=== PATIENT | female | born 1950 | race Caucasian/White ===

== ENCOUNTER 2020-04-05 10:38 | Inpatient (IN) | payer MEDICARE, OTHER ==
[2020-04-05] MEDS ORDERED: Sodium Chloride 0.9% 10 ML Syringe FLUSH PRN ×2 (11:31→16:09)
[2020-04-05] MEDS ORDERED: Ketorolac 30 MG/ML SDV IVPUSH ONE (11:32)
--- NOTE | 2020-04-05 11:38 | EDM.PDOC ---
ED HPI GENERAL MEDICAL PROBLEM - General Chief Complaint: General Stated Complaint: WEAKNESS, LIGHTHEADEDNESS, LEFT SIDE SIATIC PAIN Time Seen by Provider: 04/05/20 11:15 Source of Information: Reports: Patient, Family, RN. Denies: Old Records History Limitations: Reports: Other (no old records) - History of Present Illness INITIAL COMMENTS - FREE TEXT/NARRATIVE: 69 yo female from [facility] presents with R hip area pain that radiates down her leg. There was no injury. She reports having a high fever a couple weeks ago that resolved and then came back with no interventions. The fever has now stayed away, but she has some dizziness/light-headedness and this R hip pain. She has been taking ibuprofen or Aleve twice daily for the past 5 days for her hip pain with partial relief. No melena or dysuria. She has a rare, dry cough without SOB. Here with her . They hope to leave for [place] in about 2 weeks. Onset: Gradual Duration: Week(s):, Waxing/Waning Location: Reports: Lower Extremity, Right (hip area pain is her main concern today.) Quality: Reports: Ache Severity: Moderate (at rest, worse with movement.) Improves with: Reports: Rest Worsens with: Reports: Movement Context: Reports: Other (See HPI) Associated Symptoms: Reports: Cough (rare, dry), Fever/Chills (now gone for over a week. ), Malaise, Other (mild dizziness). 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 (ibuprofen 400 mg at about 0800h today) Right Hip Pain Score (Numeric/FACES): 10 - Related Data Allergies Allergy/AdvReac Type Severity Reaction Status Date / Time Penicillins Allergy Cannot Verified 04/05/20 11:07 Remember Sulfa (Sulfonamide Allergy Cannot Verified 04/05/20 11:07 Antibiotics) Remember Home Meds: Home Meds Ascorbate Calcium [Vitamin C] 500 mg PO DAILY 04/05/20 [History] Ibuprofen 400 mg PO ASDIRECTED PRN 04/05/20 [History] Multivitamin [Multi-Vitamin Daily] 1 each PO DAILY 04/05/20 [History] Naproxen Sodium [Aleve] 220 mg PO ASDIRECTED PRN 04/05/20 [History] Vitamin B Complex 1 each PO DAILY 04/05/20 [History] Past Medical History Cardiovascular History: Reports: None Respiratory History: Reports: None Gastrointestinal History: Reports: None Genitourinary History: Reports: None 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 Musculoskeletal History: Reports: None Neurological History: Reports: Migraines Psychiatric History: Reports: None Endocrine/Metabolic History: Reports: None Hematologic History: Reports: None Immunologic History: Reports: None Oncologic (Cancer) History: Reports: None Dermatologic History: Reports: Cellulitis - Infectious Disease History Infectious Disease History: Reports: Chicken Pox, Measles, Mumps, Shingles - Past Surgical History HEENT Surgical History: Reports: Myringotomy w Tube(s), Tonsillectomy GI Surgical History: Reports: Appendectomy Social & Family History - Tobacco Use Smoking Status *Q: Never Smoker - Caffeine Use Caffeine Use: Reports: Coffee - Recreational Drug Use Recreational Drug Use: No ED ROS GENERAL - Review of Systems Review Of Systems: See Below Constitutional: Reports: Fever (gone now for over a week.), Malaise HEENT: Reports: No Symptoms Respiratory: Reports: Cough (rare, dry). Denies: Shortness of Breath, Wheezing, Pleuritic Chest Pain, Sputum, Hemoptysis Cardiovascular: Reports: No Symptoms Endocrine: Reports: No Symptoms GI/Abdominal: Reports: No Symptoms : Reports: No Symptoms Musculoskeletal: Reports: Joint Pain (R lateral hip) Skin: Reports: No Symptoms Neurological: Reports: Other (Pain radiates down her R leg (ache), no numbness or bowel or bladder dysfunction. ) Psychiatric: Reports: No Symptoms ED EXAM, GENERAL - Physical Exam Exam: See Below Exam Limited By: No Limitations General Appearance: Alert, WD/WN, No Apparent Distress Eye Exam: Bilateral Eye: Normal Inspection Ears: Normal External Exam, Normal Canal, Hearing Grossly Normal, Normal TMs Ear Exam: Bilateral Ear: Auricle Normal, Canal Normal, TM normal Nose: Normal Inspection, No Blood Throat/Mouth: Normal Inspection, Normal Lips, Normal Oropharynx, Normal Voice, No Airway Compromise Head: Atraumatic, Normocephalic Neck: Normal Inspection. No: Lymphadenopathy (R), Lymphadenopathy (L) Respiratory/Chest: No Respiratory Distress, Lungs Clear, Normal Breath Sounds, No Accessory Muscle Use Cardiovascular: Regular Rate, Rhythm, No Edema, Tachycardia (HR just under 100/min) GI/Abdominal: Normal Bowel Sounds, Soft, Non-Tender, No Distention Back Exam: Normal Inspection, Other (mild tenderness over R iliac crest on palpation. ). No: CVA Tenderness (R), CVA Tenderness (L) Extremities: Normal Inspection, Normal Range of Motion, No Pedal Edema, Other (full R hip extension with some post thigh tightness, no shooting pains. ). No: Pedal Edema, Limited Range of Motion Neurological: Alert, Oriented, CN II-XII Intact, Normal Cognition, No Motor/Sensory Deficits, Other (R sciatic notch tenderness, no SI joint pain. ). No: Inattentive, Confused, Disoriented, Slow to Respond Psychiatric: Normal Affect, Normal Mood Skin Exam: Warm, Dry, Intact, Normal Color, No Rash Course - Vital Signs Text/Narrative:: Dr. Hillman called @ 1330h Last Recorded V/S: Last Vital Signs Temp 36.5 C 04/05/20 11:02 Pulse 94 04/05/20 11:35 Resp 16 04/05/20 11:35 BP 131/55 L 04/05/20 11:35 Pulse Ox 96 04/05/20 11:35 - Orders/Labs/Meds Orders: Active Orders 24 hr Category Date Time Status CORONAVIRUS COVID-19, WES Stat Lab 04/05/20 12:33 Ordered CULTURE BLOOD [BC] Stat Lab 04/05/20 12:40 Received CULTURE BLOOD [BC] Stat Lab 04/05/20 13:30 Received CULTURE URINE [RM] Stat Lab 04/05/20 12:45 Received LYME, TOTAL AB TEST/REFLEX Routine Lab 04/05/20 11:45 Received NS + KCl 20mEq/L [Normal Saline with 20 mEq KCl] 1,000 Med 04/05/20 12:30 Active ml IV ASDIRECTED Sodium Chloride 0.9% [Saline Flush] Med 04/05/20 11:31 Active 10 ml FLUSH ASDIRECTED PRN Saline Lock Insert [OM.PC] Routine Oth 04/05/20 11:31 Ordered Medication Orders Potassium Chloride/Sodium Chloride (Normal Saline With 20 Meq Kcl) 1,000 mls @ 500 mls/hr IV ASDIRECTED PADDY Last Admin: 04/05/20 12:39 Dose: 500 mls/hr Documented by: MORENITA Sodium Chloride (Saline Flush) 10 ml FLUSH ASDIRECTED PRN PRN Reason: Keep Vein Open Last Admin: 04/05/20 11:47 Dose: 10 ml Documented by: PREILOR Labs: Laboratory Tests 04/05/20 04/05/20 04/05/20 Range/Units 11:45 11:45 11:45 WBC 12.8 H (4.5-11.0) K/uL RBC 4.43 (3.30-5.50) M/uL Hgb 12.8 (12.0-15.0) g/dL Hct 38.0 (36.0-48.0) % MCV 86 (80-98) fL MCH 29 (27-31) pg MCHC 34 (32-36) % Plt Count 149 L (150-400) K/uL D-Dimer, Quantitative (0.0-400.0) ng/mL Sodium 131 L (140-148) mmol/L Potassium 3.8 (3.6-5.2) mmol/L Chloride 94 L (100-108) mmol/L Carbon Dioxide 26 (21-32) mmol/L Anion Gap 14.8 H (5.0-14.0) mmol/L BUN 24 H (7-18) mg/dL Creatinine 1.0 (0.6-1.0) mg/dL Est Cr Clr Drug Dosing 40.81 mL/min Estimated GFR (MDRD) 55 L (>60) Glucose 498 H* (74-106) mg/dL Lactic Acid (0.4-2.0) mmol/L Calcium 8.9 (8.5-10.1) mg/dL Total Bilirubin 1.7 H (0.2-1.0) mg/dL AST 56 H (15-37) U/L ALT 104 H (12-78) U/L Alkaline Phosphatase 266 H (46-116) U/L Lactate Dehydrogenase 188 (82-234) U/L C-Reactive Protein 20.08 H (0.0-0.3) mg/dL Total Protein 5.8 L (6.4-8.2) g/dL Albumin 1.7 L (3.4-5.0) g/dL Globulin 4.1 H (2.3-3.5) g/dL Albumin/Globulin Ratio 0.4 L (1.2-2.2) Urine Color (YELLOW) Urine Appearance (CLEAR) Urine pH (5.0-8.0) Ur Specific [place] (1.008-1.030) Urine Protein (NEGATIVE) mg/dL Urine Glucose (UA) (NEGATIVE) mg/dL Urine Ketones (NEGATIVE) mg/dL Urine Occult Blood (NEGATIVE) Urine Nitrite (NEGATIVE) Urine Bilirubin (NEGATIVE) Urine Urobilinogen (0.2-1.0) EU/dL Ur Leukocyte Esterase (NEGATIVE) Urine RBC (0-5) Urine WBC (0-5) Ur Epithelial Cells Amorphous Sediment Urine Bacteria Urine Mucus 04/05/20 04/05/20 04/05/20 Range/Units 11:45 12:16 12:27 WBC (4.5-11.0) K/uL RBC (3.30-5.50) M/uL Hgb (12.0-15.0) g/dL Hct (36.0-48.0) % MCV (80-98) fL MCH (27-31) pg MCHC (32-36) % Plt Count (150-400) K/uL D-Dimer, Quantitative 2500 H (0.0-400.0) ng/mL Sodium (140-148) mmol/L Potassium (3.6-5.2) mmol/L Chloride (100-108) mmol/L Carbon Dioxide (21-32) mmol/L Anion Gap (5.0-14.0) mmol/L BUN (7-18) mg/dL Creatinine (0.6-1.0) mg/dL Est Cr Clr Drug Dosing mL/min Estimated GFR (MDRD) (>60) Glucose (74-106) mg/dL Lactic Acid 2.2 H (0.4-2.0) mmol/L Calcium (8.5-10.1) mg/dL Total Bilirubin (0.2-1.0) mg/dL AST (15-37) U/L ALT (12-78) U/L Alkaline Phosphatase (46-116) U/L Lactate Dehydrogenase (82-234) U/L C-Reactive Protein (0.0-0.3) mg/dL Total Protein (6.4-8.2) g/dL Albumin (3.4-5.0) g/dL Globulin (2.3-3.5) g/dL Albumin/Globulin Ratio (1.2-2.2) Urine Color Yellow (YELLOW) Urine Appearance Slightly cloudy A (CLEAR) Urine pH 6.0 (5.0-8.0) Ur Specific [place] 1.010 (1.008-1.030) Urine Protein Negative (NEGATIVE) mg/dL Urine Glucose (UA) 500 H (NEGATIVE) mg/dL Urine Ketones 15 H (NEGATIVE) mg/dL Urine Occult Blood Small H (NEGATIVE) Urine Nitrite Positive H (NEGATIVE) Urine Bilirubin Negative (NEGATIVE) Urine Urobilinogen 1.0 (0.2-1.0) EU/dL Ur Leukocyte Esterase Negative (NEGATIVE) Urine RBC 5-10 H (0-5) Urine WBC 5-10 H (0-5) Ur Epithelial Cells Moderate Amorphous Sediment Not seen Urine Bacteria Moderate Urine Mucus Not seen Meds: Medications Generic Name Dose Route Start Last Admin Trade Name Laure PRN Reason Stop Dose Admin Potassium Chloride/Sodium Chloride 1,000 mls @ 500 mls/hr 04/05/20 12:30 04/05/20 12:39 Normal Saline With 20 Meq Kcl IV 500 mls/hr ASDIRECTED PADDY Administration Sodium Chloride 10 ml 04/05/20 11:31 04/05/20 11:47 Saline Flush FLUSH 10 ml ASDIRECTED PRN Administration Keep Vein Open Discontinued Medications Generic Name Dose Route Start Last Admin Trade Name Laure PRN Reason Stop Dose Admin Hydromorphone HCl 0.25 mg 04/05/20 13:23 04/05/20 13:32 Dilaudid IVPUSH 04/05/20 13:24 0.25 mg ONETIME ONE Administration Ceftriaxone Sodium 1 gm/ 50 mls @ 100 mls/hr 04/05/20 13:06 04/05/20 13:20 Sodium Chloride IV 04/05/20 13:35 100 mls/hr ONETIME ONE Administration Insulin Human Regular 12 unit 04/05/20 12:29 04/05/20 12:38 Humulin R SUBCUT 04/05/20 12:30 12 units ONETIME ONE Administration Ketorolac Tromethamine 30 mg 04/05/20 11:32 04/05/20 11:48 Toradol IVPUSH 04/05/20 11:33 30 mg ONETIME ONE Administration - Radiology Interpretation Free Text/Narrative:: CXR-neg pelvis X-ray-neg Departure - Departure Time of Disposition: 13:50 Disposition: Admitted As Inpatient 64 Condition: Fair Clinical Impression: Hip pain, Elevated blood sugar, Elevated C-reactive protein (CRP), Elevated LFTs - Discharge Information *PRESCRIPTION DRUG MONITORING PROGRAM REVIEWED*: No *COPY OF PRESCRIPTION DRUG MONITORING REPORT IN PATIENT CLARISSA: No Referrals: PCP,None [Primary Care Provider] - Forms: ED Department Discharge Sepsis Event Note (ED) - Evaluation Sepsis Screening Result: No Definite Risk - Focused Exam Vital Signs: Vital Signs Temp Pulse Resp BP Pulse Ox 04/05/20 11:35 94 16 131/55 L 96 04/05/20 11:02 36.5 C 98 16 156/53 H 97 - My Orders Last 24 Hours: My Active Orders 04/05/20 11:31 Sodium Chloride 0.9% [Saline Flush] 10 ml FLUSH ASDIRECTED PRN Saline Lock Insert [OM.PC] Routine 04/05/20 11:45 LYME, TOTAL AB TEST/REFLEX Routine 04/05/20 12:30 NS + KCl 20mEq/L [Normal Saline with 20 mEq KCl] 1,000 ml IV ASDIRECTED 04/05/20 12:33 CORONAVIRUS COVID-19, WES Stat 04/05/20 12:40 CULTURE BLOOD [BC] Stat 04/05/20 12:45 CULTURE URINE [RM] Stat 04/05/20 13:30 CULTURE BLOOD [BC] Stat - Assessment/Plan Last 24 Hours: My Active Orders 04/05/20 11:31 Sodium Chloride 0.9% [Saline Flush] 10 ml FLUSH ASDIRECTED PRN Saline Lock Insert [OM.PC] Routine 04/05/20 11:45 LYME, TOTAL AB TEST/REFLEX Routine 04/05/20 12:30 NS + KCl 20mEq/L [Normal Saline with 20 mEq KCl] 1,000 ml IV ASDIRECTED 04/05/20 12:33 CORONAVIRUS COVID-19, WES Stat 04/05/20 12:40 CULTURE BLOOD [BC] Stat 04/05/20 12:45 CULTURE URINE [RM] Stat 04/05/20 13:30 CULTURE BLOOD [BC] Stat
[2020-04-05] MEDS ORDERED: Insulin Regular, Human 100 Units/ML 3 ML Vial SUBCUT ONE (12:29)
[2020-04-05] MEDS ORDERED: NS + KCl 20mEq/L 1,000 ML IV SCH (12:30)
[2020-04-05] MEDS ORDERED: cefTRIAXone 1 GM in Sodium Chloride 0.9% 50 ML IV ONE (13:06)
[2020-04-05] MEDS ORDERED: HYDROmorphone 0.5 MG/0.5 ML Syringe IVPUSH ONE ×2 (13:23→15:02)
--- NOTE | 2020-04-05 13:37 | CR ---
CHEST: 2 view CLINICAL HISTORY:Elevated CRP COMPARISON:None FINDINGS: The heart size, pulmonary vascularity and hilar structures are normal. No infiltrate effusion or pneumothorax is seen. IMPRESSION: No acute cardiopulmonary process. Pelvis 1V or 2V CLINICAL HISTORY: Right hip pain FINDINGS: No fracture or osseous lesion seen. There is narrowing of both hip joint spaces. There is some protrusio acetabula IMPRESSION: Degenerative changes both hips No fracture
[2020-04-05 14:05] LABS: HEMOGLOBIN A1C 12.7 % (4.5-6.2)
--- NOTE | 2020-04-05 15:20 | PCM.HP.2 ---
H&P History of Present Illness - General Date of Service: 04/05/20 Admit Problem/Dx: Admission Diagnosis/Problem Admission Diagnosis/Problem UTI, Urinary tract infectious disease Source of Information: Patient, Family, Provider, RN Notes Reviewed History Limitations: Reports: No Limitations - History of Present Illness Initial Comments - Free Text/Narative: Ms. Cole is a 69-year-old woman who was admitted through the emergency department with weakness and dehydration, secondary to urinary tract infection. She has not felt well over the last week and a half and has become progressively more weak during that period of time. Symptoms have been significantly worse over the last few days and oral intake during that period of time has been poor. With onset of symptoms a week and a half ago she did note a fever of 103 F. Initially she did have some sore throat and a cough that seemed to originate in her throat. She denies significant symptoms of shortness of breath or chest pain. She has not had much in the way of abdominal symptoms and denies abdominal pain, nausea, or diarrhea. Over the last few days has developed significant pain in her right buttock that radiates into the right leg. She denies any precipitating injuries. Chest x-ray is clear with no infiltrates or other significant abnormalities. Liver enzymes were mildly elevated including transaminase levels, alkaline phosphatase, and bilirubin. Blood cell count is modestly elevated and there is significant elevation of her CRP. She denies fevers over the past few days. X-rays of her pelvis showed evidence of osteoarthritis of both hips, no fractures were noted. Right Hip Pain Score (Numeric/FACES): 10 - Related Data Allergies/Adverse Reactions: Allergies Allergy/AdvReac Type Severity Reaction Status Date / Time Penicillins Allergy Cannot Verified 04/05/20 11:07 Remember Sulfa (Sulfonamide Allergy Cannot Verified 04/05/20 11:07 Antibiotics) Remember Home Medications: Home Meds Ascorbate Calcium [Vitamin C] 500 mg PO DAILY 04/05/20 [History] Ibuprofen 400 mg PO ASDIRECTED PRN 04/05/20 [History] Multivitamin [Multi-Vitamin Daily] 1 each PO DAILY 04/05/20 [History] Naproxen Sodium [Aleve] 220 mg PO ASDIRECTED PRN 04/05/20 [History] Vitamin B Complex 1 each PO DAILY 04/05/20 [History] Past Medical History Cardiovascular History: Reports: None Respiratory History: Reports: None Gastrointestinal History: Reports: None Genitourinary History: Reports: None 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 Musculoskeletal History: Reports: None Neurological History: Reports: Migraines Psychiatric History: Reports: None Endocrine/Metabolic History: Reports: None Hematologic History: Reports: None Immunologic History: Reports: None Oncologic (Cancer) History: Reports: None Dermatologic History: Reports: Cellulitis - Infectious Disease History Infectious Disease History: Reports: Chicken Pox, Measles, Mumps, Shingles - Past Surgical History HEENT Surgical History: Reports: Myringotomy w Tube(s), Tonsillectomy GI Surgical History: Reports: Appendectomy Social & Family History - Tobacco Use Smoking Status *Q: Never Smoker - Caffeine Use Caffeine Use: Reports: Coffee - Recreational Drug Use Recreational Drug Use: No H&P Review of Systems - Review of Systems: Review Of Systems: See Below General: Reports: Malaise, Weakness, Fatigue, Decreased Appetite. Denies: Fever, Chills HEENT: Reports: No Symptoms Pulmonary: Reports: No Symptoms Cardiovascular: Reports: No Symptoms Gastrointestinal: Reports: No Symptoms Genitourinary: Reports: No Symptoms Musculoskeletal: Reports: Back Pain, Leg Pain Skin: Reports: No Symptoms Psychiatric: Reports: No Symptoms Neurological: Reports: No Symptoms Hematologic/Lymphatic: Reports: No Symptoms Immunologic: Reports: No Symptoms Exam - Exam Exam: See Below - Vital Signs Vital Signs: Last Vital Signs Temp 97.7 F 04/05/20 11:02 Pulse 90 04/05/20 15:15 Resp 16 04/05/20 11:35 BP 114/47 L 04/05/20 15:15 Pulse Ox 96 04/05/20 15:15 Weight: 156 lb 11.979 oz - Exam Quality Assessment: DVT Prophylaxis General: Alert, Oriented, Cooperative, Moderate Distress HEENT: Conjunctiva Clear, Hearing Intact, Normal Nasal Septum, Posterior Pharynx Clear, Pupils Equal. No: Mucosa Moist & [place] Neck: Supple, Trachea Midline, +2 Carotid Pulse wo Bruit Lungs: Clear to Auscultation, Normal Respiratory Effort Cardiovascular: Regular Rate, Regular Rhythm, Normal S1, Normal S2. No: Systolic Murmur, Diastolic Murmur GI/Abdominal Exam: Soft, Non-Tender, No Organomegaly, No Distention Back Exam: Normal Inspection, Full Range of Motion Extremities: Leg Pain. No: Jasmine's Sign, Limited Range of Motion Skin: Warm, Dry, Intact Neurological: Cranial Nerves Intact, Strength Equal Bilateral, Normal Speech, Normal Tone, Sensation Intact. No: Focal Deficit Neuro Extensive - Mental Status: Alert, Oriented x3, Normal Mood/Affect, Normal Cognition, Memory Intact - Patient Data Lab Results Last 24 hrs: Laboratory Results - last 24 hr 04/05/20 04/05/20 04/05/20 Range/Units 11:45 11:45 11:45 WBC 12.8 H (4.5-11.0) K/uL RBC 4.43 (3.30-5.50) M/uL Hgb 12.8 (12.0-15.0) g/dL Hct 38.0 (36.0-48.0) % MCV 86 (80-98) fL MCH 29 (27-31) pg MCHC 34 (32-36) % Plt Count 149 L (150-400) K/uL D-Dimer, Quantitative (0.0-400.0) ng/mL Sodium 131 L (140-148) mmol/L Potassium 3.8 (3.6-5.2) mmol/L Chloride 94 L (100-108) mmol/L Carbon Dioxide 26 (21-32) mmol/L Anion Gap 14.8 H (5.0-14.0) mmol/L BUN 24 H (7-18) mg/dL Creatinine 1.0 (0.6-1.0) mg/dL Est Cr Clr Drug Dosing 40.81 mL/min Estimated GFR (MDRD) 55 L (>60) Glucose 498 H* (74-106) mg/dL Hemoglobin A1c (4.5-6.2) % Lactic Acid (0.4-2.0) mmol/L Calcium 8.9 (8.5-10.1) mg/dL Total Bilirubin 1.7 H (0.2-1.0) mg/dL AST 56 H (15-37) U/L ALT 104 H (12-78) U/L Alkaline Phosphatase 266 H (46-116) U/L Lactate Dehydrogenase 188 (82-234) U/L C-Reactive Protein 20.08 H (0.0-0.3) mg/dL Total Protein 5.8 L (6.4-8.2) g/dL Albumin 1.7 L (3.4-5.0) g/dL Globulin 4.1 H (2.3-3.5) g/dL Albumin/Globulin Ratio 0.4 L (1.2-2.2) Urine Color (YELLOW) Urine Appearance (CLEAR) Urine pH (5.0-8.0) Ur Specific [place] (1.008-1.030) Urine Protein (NEGATIVE) mg/dL Urine Glucose (UA) (NEGATIVE) mg/dL Urine Ketones (NEGATIVE) mg/dL Urine Occult Blood (NEGATIVE) Urine Nitrite (NEGATIVE) Urine Bilirubin (NEGATIVE) Urine Urobilinogen (0.2-1.0) EU/dL Ur Leukocyte Esterase (NEGATIVE) Urine RBC (0-5) Urine WBC (0-5) Ur Epithelial Cells Amorphous Sediment Urine Bacteria Urine Mucus SARS-CoV-2 RNA (WES) (NEGATIVE) 04/05/20 04/05/20 04/05/20 Range/Units 11:45 12:16 12:27 WBC (4.5-11.0) K/uL RBC (3.30-5.50) M/uL Hgb (12.0-15.0) g/dL Hct (36.0-48.0) % MCV (80-98) fL MCH (27-31) pg MCHC (32-36) % Plt Count (150-400) K/uL D-Dimer, Quantitative 2500 H (0.0-400.0) ng/mL Sodium (140-148) mmol/L Potassium (3.6-5.2) mmol/L Chloride (100-108) mmol/L Carbon Dioxide (21-32) mmol/L Anion Gap (5.0-14.0) mmol/L BUN (7-18) mg/dL Creatinine (0.6-1.0) mg/dL Est Cr Clr Drug Dosing mL/min Estimated GFR (MDRD) (>60) Glucose (74-106) mg/dL Hemoglobin A1c (4.5-6.2) % Lactic Acid 2.2 H (0.4-2.0) mmol/L Calcium (8.5-10.1) mg/dL Total Bilirubin (0.2-1.0) mg/dL AST (15-37) U/L ALT (12-78) U/L Alkaline Phosphatase (46-116) U/L Lactate Dehydrogenase (82-234) U/L C-Reactive Protein (0.0-0.3) mg/dL Total Protein (6.4-8.2) g/dL Albumin (3.4-5.0) g/dL Globulin (2.3-3.5) g/dL Albumin/Globulin Ratio (1.2-2.2) Urine Color Yellow (YELLOW) Urine Appearance Slightly cloudy A (CLEAR) Urine pH 6.0 (5.0-8.0) Ur Specific [place] 1.010 (1.008-1.030) Urine Protein Negative (NEGATIVE) mg/dL Urine Glucose (UA) 500 H (NEGATIVE) mg/dL Urine Ketones 15 H (NEGATIVE) mg/dL Urine Occult Blood Small H (NEGATIVE) Urine Nitrite Positive H (NEGATIVE) Urine Bilirubin Negative (NEGATIVE) Urine Urobilinogen 1.0 (0.2-1.0) EU/dL Ur Leukocyte Esterase Negative (NEGATIVE) Urine RBC 5-10 H (0-5) Urine WBC 5-10 H (0-5) Ur Epithelial Cells Moderate Amorphous Sediment Not seen Urine Bacteria Moderate Urine Mucus Not seen SARS-CoV-2 RNA (WES) (NEGATIVE) 04/05/20 04/05/20 Range/Units 13:40 14:00 WBC (4.5-11.0) K/uL RBC (3.30-5.50) M/uL Hgb (12.0-15.0) g/dL Hct (36.0-48.0) % MCV (80-98) fL MCH (27-31) pg MCHC (32-36) % Plt Count (150-400) K/uL D-Dimer, Quantitative (0.0-400.0) ng/mL Sodium (140-148) mmol/L Potassium (3.6-5.2) mmol/L Chloride (100-108) mmol/L Carbon Dioxide (21-32) mmol/L Anion Gap (5.0-14.0) mmol/L BUN (7-18) mg/dL Creatinine (0.6-1.0) mg/dL Est Cr Clr Drug Dosing mL/min Estimated GFR (MDRD) (>60) Glucose (74-106) mg/dL Hemoglobin A1c 12.7 H (4.5-6.2) % Lactic Acid (0.4-2.0) mmol/L Calcium (8.5-10.1) mg/dL Total Bilirubin (0.2-1.0) mg/dL AST (15-37) U/L ALT (12-78) U/L Alkaline Phosphatase (46-116) U/L Lactate Dehydrogenase (82-234) U/L C-Reactive Protein (0.0-0.3) mg/dL Total Protein (6.4-8.2) g/dL Albumin (3.4-5.0) g/dL Globulin (2.3-3.5) g/dL Albumin/Globulin Ratio (1.2-2.2) Urine Color (YELLOW) Urine Appearance (CLEAR) Urine pH (5.0-8.0) Ur Specific [place] (1.008-1.030) Urine Protein (NEGATIVE) mg/dL Urine Glucose (UA) (NEGATIVE) mg/dL Urine Ketones (NEGATIVE) mg/dL Urine Occult Blood (NEGATIVE) Urine Nitrite (NEGATIVE) Urine Bilirubin (NEGATIVE) Urine Urobilinogen (0.2-1.0) EU/dL Ur Leukocyte Esterase (NEGATIVE) Urine RBC (0-5) Urine WBC (0-5) Ur Epithelial Cells Amorphous Sediment Urine Bacteria Urine Mucus SARS-CoV-2 RNA (WES) Negative (NEGATIVE) Result Diagrams: 04/05/20 11:45 04/05/20 11:45 Sepsis Event Note - Evaluation Sepsis Screening Result: No Definite Risk - Focused Exam Vital Signs: Vital Signs Temp Pulse Resp BP Pulse Ox 04/05/20 15:15 90 114/47 L 96 04/05/20 14:41 91 131/47 L 96 04/05/20 12:53 89 130/41 L 04/05/20 11:35 94 16 131/55 L 96 04/05/20 11:02 97.7 F 98 16 156/53 H 97 *Q Meaningful Use (ADM) - VTE Risk Assess *Q Each Risk Factor Represents 1 Point: Obesity ( BMI > 25 kg/m2) Total Score 1 Point Risk Factors: 1 Each Risk Factor Represents 2 Points: Age 60 - 74 Years Total Score 2 Point Risk Factors: 2 Each Risk Factor Represents 3 Points: None Total Score 3 Point Risk Factors: 0 Each Risk Factor Represents 5 Points: None Total Score 5 Point Risk Factors: 0 Venous Thromboembolism Risk Factor Score *Q: 3 Problem List Initiated/Reviewed/Updated: Yes Orders Last 24hrs: Active Orders 24 hr Category Date Time Status Patient Status Manage Transfer [TRANSFER] Routine ADT 04/05/20 15:07 Active Abdomen Pelvis w Cont [CT] Stat Exams 04/05/20 15:02 Ordered Ang Chest [CT] Stat Exams 04/05/20 15:02 Ordered CULTURE BLOOD [BC] Stat Lab 04/05/20 12:40 Received CULTURE BLOOD [BC] Stat Lab 04/05/20 13:30 Received CULTURE URINE [RM] Stat Lab 04/05/20 12:45 Received LYME, TOTAL AB TEST/REFLEX Routine Lab 04/05/20 11:45 Received NS + KCl 20mEq/L [Normal Saline with 20 mEq KCl] 1,000 Med 04/05/20 12:30 Active ml IV ASDIRECTED Sodium Chloride 0.9% [Saline Flush] Med 04/05/20 11:31 Active 10 ml FLUSH ASDIRECTED PRN Saline Lock Insert [OM.PC] Routine Oth 04/05/20 11:31 Ordered Resuscitation Status Routine Resus Stat 04/05/20 15:08 Ordered Medication Orders Potassium Chloride/Sodium Chloride (Normal Saline With 20 Meq Kcl) 1,000 mls @ 500 mls/hr IV ASDIRECTED PADDY Last Admin: 04/05/20 12:39 Dose: 500 mls/hr Documented by: MORENITA Sodium Chloride (Saline Flush) 10 ml FLUSH ASDIRECTED PRN PRN Reason: Keep Vein Open Last Admin: 04/05/20 11:47 Dose: 10 ml Documented by: PREILOR Assessment/Plan Comment:: ASSESSMENT AND PLAN URINARY TRACT INFECTION-modest elevation in white blood cell count, urinalysis shows evidence of possible infection -Blood and urine cultures pending -Ceftriaxone 1 g IV daily pending culture results WEAKNESS AND DEHYDRATION-poor oral intake over the past few days with progress lisa weakness over the last week and a half. Likely secondary to underlying infection versus malignancy versus other inflammatory process. -IV fluids for hydration -Physical therapy consult TYPE 2 DIABETES MELLITUS-new diagnosis with marked hyperglycemia on admission. Hemoglobin A1c significantly elevated at 12.3 indicating that this is a chronic process that has become worse -4 times daily glucometers -Metformin 500 mg p.o. twice daily -Low-dose sliding scale Humalog -community educator consult -Dietary consult ELEVATED V-CJCUM-phjmuniwq denies respiratory symptoms but d-dimer is significan tly elevated. May be secondary to other underlying inflammatory process. -CT angiogram of the chest to evaluate for pulmonary emboli ELEVATED LIVER STUDIES-mild elevation in transaminase levels, alkaline phosphatase, and bilirubin. Denies significant abdominal symptoms. -CT scan of abdomen and pelvis -Follow-up liver studies in a.m. -Consider other testing depending on CT results and follow-up labs RADICULAR PAIN RIGHT BUTTOCK AND LEG-new symptom over the past several days, she denies any type of precipitating injury -MRI of the lumbar spine MAINTENANCE ISSUES -DVT prophylaxis; Lovenox 40 mg subcu daily -GI prophylaxis; not indicated -Pena catheter; not indicated -Nutrition; consistent carb diet -Nicotine dependence; not required CODE STATUS-FULL CODE ADMISSION STATUS-patient will be admitted to inpatient status, expect at least a 2 night hospital stay for evaluation and management of problems as outlined above. At the time of this admission I do not reasonably expected evaluation and management of this problem will require more than a 96 hour hospital stay. DISPOSITION-anticipate discharge to home after the hospital stay. PRIMARY CARE PROVIDER-she does not regularly seek medical care and does not have a primary care provider - Mortality Measure Prognosis:: Good
[2020-04-05] MEDS ORDERED: Sodium Chloride 0.9% 10 ML Syringe FLUSH ONE (15:45)
[2020-04-05] MEDS ORDERED: Iopamidol 755 Mg/ML 100 ML Bottle IV SCH (15:45)
[2020-04-05] MEDS ORDERED: Sodium Chloride 0.9% 100 ML IV SCH (15:45)
[2020-04-05] MEDS ORDERED: Polyethylene Glycol 3350 Powder 17 GM Packet PO PRN (16:09)
[2020-04-05] MEDS ORDERED: Acetaminophen 325 MG Tab PO PRN (16:09)
[2020-04-05] MEDS ORDERED: Glucose Gel 15 GM in 37.5 GM Tube PO PRN (16:09)
[2020-04-05] MEDS ORDERED: Ondansetron 4 MG/2 ML SDV IV PRN (16:09)
[2020-04-05] MEDS ORDERED: Sodium Chloride 0.9% 1,000 ML IV SCH (16:09)
[2020-04-05] MEDS ORDERED: oxyCODONE 5 MG Tab PO PRN (16:09)
[2020-04-05] MEDS ORDERED: 50% Dextrose in Water 50 ML Syringe IV PRN (16:09)
[2020-04-05] MEDS ORDERED: metFORMIN 500 MG Tab PO SCH (17:00)
[2020-04-05] MEDS ORDERED: Enoxaparin 40 MG/0.4 ML Syringe SUBCUT SCH (17:00)
[2020-04-05] MEDS ORDERED: Insulin Lispro 100 Unit/ML 3 ML KwikPen SUBCUT SCH (17:00)
--- NOTE | 2020-04-05 17:18 | CRLCT ---
INDICATION: 69 year-old female. Weakness. General malaise for approximately 1-1/2 weeks. Elevated D-dimer. Elevated C-reactive protein. Reported new onset diabetes not otherwise specified. TECHNIQUE: Contrast-enhanced chest CT performed using the angiographic protocol. 100 cc nonionic Isovue-370 administered. COMPARISON: Correlation is made with a chest x-ray performed on the same date. FINDINGS: No acute pulmonary emboli identified. Tiny left-sided pleural effusion. No right-sided pleural effusion. Trace pericardial effusion. No evidence for active pneumonia. Minor left basilar atelectasis. The included breath are within normal limits. Normal caliber thoracic aorta. The esophagus is unremarkable. Images of the upper abdomen demonstrate an incompletely visualized cystic pancreatic tail mass measuring approximately 2 cm. Please see the abdominopelvic CT from the same date. Questionable slight splenic enlargement. The visualized adrenal glands are unremarkable. The included thoracic skeleton is grossly unremarkable. IMPRESSION: 1. No acute pulmonary emboli. 2. Tiny left pleural effusion. Left basilar atelectasis. 3. Few mildly enlarged hilar/mediastinal lymph nodes likely reactive. 4. Questionable splenomegaly. 5. 2 cm cystic pancreatic mass within the pancreatic tail incompletely visualized. 6. These findings were discussed briefly with Dr. Rafael Hillman at 5:10 p.m. on April 05, 2020. Please note that all CT scans at this facility use dose modulation, iterative reconstruction, and/or weight-based dosing when appropriate to reduce radiation dose to as low as reasonably achievable. Dictated by Rafael Collins MD @ Apr 05 2020 4:43PM Signed by Dr. Rafael Collins @ Apr 05 2020 5:17PM
--- NOTE | 2020-04-05 17:28 | CRLCT ---
INDICATION: Weakness. Elevated liver function tests. Elevated C-reactive protein. Reported new onset diabetes not otherwise specified. General weakness and malaise for 1 to 1-1/2 weeks. TECHNIQUE: Contrast-enhanced CT of the abdomen and pelvis. COMPARISON: Correlation is made with today`s chest CT. FINDINGS: There is a multi lobulated fluid collection and air associated with the inferolateral left renal cortex with air extending into the renal hilus/collecting system or renal pelvic veins compatible with a multi loculated abscess. On image 71 series 2 this process measures at least 3.6 x 3.6 cm in AP and transverse dimension. Trace fluid and fat stranding along the left pericolic gutter. There are numerous small foci of air within the epidural space within the lower thoracic/lumbar spinal canal. Please see image 58 series 4 and image 62 series 4. This is fairly extensive and also extends along the neuroforaminal canals within the sacrum bilaterally. Additionally there are small dots of air within retroperitoneal blood vessels likely veins with air within or adjacent to the piriformis musculature bilaterally and left posterolateral perirectal soft tissues, image 132 series 2 with a few tiny dots of air in the deep lateral left hemipelvis image 141 series 2 and small dots of air in the soft tissues near the gluteus musculature on the left, image 128 series 2 as well as along the right parasacral musculature. Additionally there is air within the bone of the right upper sacrum at the S1 level, image 62 series 3 for example. This pattern may be related to a primary left renal abscess with subsequent spread of air into these additional spaces as described. Emergent urologic surgical consultation is warranted. Neurologic consultation may be warranted. The possibility of an ongoing or new osteomyelitis within the right upper sacrum is suspect. Tiny left pleural effusion. The liver is negative for masses or biliary dilatation. Slight splenic enlargement may be reactive. Tiny low-dense lesion in the spleen potentially a small hemangioma image 35 series 2. There is a 2.2 x 2.16 cm cystic pancreatic mass within the pancreatic tail potentially an IPMN. This will require followup when the clinical picture allows. A pancreatic MRI may be helpful. No definite gallstones. Questionable slight gallbladder wall thickening image 46 series 2. Normal adrenal glands. Renal cysts. No hydronephrosis. Vascular calcification within a normal caliber abdominal aorta and iliac arteries. There is no bowel obstruction or ileus. No evidence for appendicitis or diverticulitis. Urinary bladder and uterus are unremarkable. No adnexal masses. These findings were discussed in detail with Dr. Rafael Hillman at 5:15 p.m. on April 05, 2020. IMPRESSION: 1. Multiloculated left renal abscess as described. Air extends into the left renal pelvis potentially within renal pelvic veins and/or the collecting system. Emergent surgical urologic consultation is warranted. 2. Abnormal collections of air within the lumbosacral epidural space, soft tissue musculature of each buttock, right sacral spinal musculature, the right sacrum itself, retroperitoneal veins, with air in and adjacent to the piriformis musculature. Neurosurgical consultation may be required. Osteomyelitis of the right sacrum is suspect. 3. Cystic pancreatic tail mass which will require followup/further evaluation when the clinical picture allows. 4. Mildly thickened gallbladder wall nonspecific. 5. Mild splenomegaly. Please note that all CT scans at this facility use dose modulation, iterative reconstruction, and/or weight-based dosing when appropriate to reduce radiation dose to as low as reasonably achievable. Dictated by Rafael Collins MD @ Apr 05 2020 4:42PM Signed by Dr. Rafael Collins @ Apr 05 2020 5:27PM
[2020-04-05] MEDS ORDERED: Vancomycin 1 GM SDV IV SCH (18:00)
[2020-04-05] MEDS ORDERED: Meropenem 1 GM in Sodium Chloride 0.9% 100 ML IV SCH (18:00)
[2020-04-05] MEDS ORDERED: PHARMACY TO DOSE VANCOMYCIN IV SCH (18:15)
--- NOTE | 2020-04-05 18:40 | PCM.DCSUM1 ---
Discharge Summary - Hospital Course Brief History: Ms. Cole is a 69-year-old woman who was admitted through the emergency department with weakness and dehydration, secondary to underlying infection and uncontrolled new diagnosis of type 2 diabetes mellitus. - Discharge Data Discharge Date: 04/05/20 Discharge Disposition: DC/Tfer to Acute Hospital 02 Condition: Serious - Referral to Home Health Primary Care Physician: PCP None - Discharge Diagnosis/Problem(s) (1) Abscess of left kidney SNOMED Code(s): 3148235 ICD Code: N15.1 - RENAL AND PERINEPHRIC ABSCESS Status: Acute Current Visit: Yes (2) Pelvic infection SNOMED Code(s): 384431157, 812740190 ICD Code: [id number] - Status: Acute Current Visit: Yes (3) Type 2 diabetes mellitus SNOMED Code(s): 46529096 ICD Code: E11.9 - TYPE 2 DIABETES MELLITUS WITHOUT COMPLICATIONS Status: Acute Current Visit: Yes (4) Hyperglycemia SNOMED Code(s): 97224450 ICD Code: R73.9 - HYPERGLYCEMIA, UNSPECIFIED Status: Acute Current Visit: Yes (5) Elevated LFTs SNOMED Code(s): 197717541, 239229391 ICD Code: R79.89 - OTHER SPECIFIED ABNORMAL FINDINGS OF BLOOD CHEMISTRY Status: Acute Current Visit: Yes - Patient Summary/Data Consults: Consultations 04/05/20 16:09 Consult to Diabetic Nurse Specialist [CONS] Routine Comment: Physician Instructions: Reason for Consult: New diagnosis of type 2 diabetes mellitus Consult to Java Manager [CONS] Routine Comment: Physician Instructions: Quantity: Reason for Consult: New diagnosis of type 2 diabetes mellitus PT Evaluation and Treatment [CONS] Routine Please Evaluate and Treat. PT Reason for Consult: Weakness, L buttock and leg pain This query below is only for informational purposes and is not editable. Hospital Course: Ms. Cole is a 69-year-old woman who was admitted through the emergency department with weakness and dehydration, secondary to urinary tract infection. She has not felt well over the last week and a half and has become progressively more weak during that period of time. Symptoms have been significantly worse over the last few days and oral intake during that period of time has been poor. With onset of symptoms a week and a half ago she did note a fever of 103 F. Initially she did have some sore throat and a cough that seemed to originate in her throat. She denies significant symptoms of shortness of breath or chest pain. She has not had much in the way of abdominal symptoms and denies abdominal pain, nausea, or diarrhea. Over the last few days has developed significant pain in her right buttock that radiates into the right leg. She denies any precipitating injuries. Chest x-ray is clear with no infiltrates or other significant abnormalities. Liver enzymes were mildly elevated including transaminase levels, alkaline phosphatase, and bilirubin. White blood cell count is modestly elevated and there is significant elevation of her CRP. She denies fevers over the past few days. X-rays of her pelvis showed evidence of osteoarthritis of both hips, no fractures were noted. While in the emergency department blood and urine cultures were obtained and she was started on IV antibiotic therapy with ceftriaxone. Admission she was given IV fluids for hydration, there was no evidence of sepsis. CT scan of the chest was obtained because of elevated d-dimer, this was found to be essentially negative with no evidence of pulmonary emboli or significant pulmonary findings. CT scan of the abdomen and pelvis was also ordered at the time of admission, the results of which were extremely abnormal. CT scan showed a multiloculated left renal abscess with air extending into the left renal pelvis, potentially within renal pelvic veins and/or collecting system. It also showed abnormal collections of air within the lumbosacral epidural space, soft tissue musculature of each buttock, right sacral spinal musculature, the right sacrum itself, retroperitoneal veins, with air in and adjacent to the piriformis musculature. When this report became available ceftriaxone was discontinued and she was started on IV vancomycin and meropenem. Findings were reviewed with the patient as well as her and the recommendation was made for transfer to a tertiary care center for further evaluation and management. I did review all of this with Dr. Marc hospitalist at [facility] in [place] who has agreed to accept the patient in transfer. She will be transferred via [facility] ambulance for further subspecialty evaluation and care. - Patient Instructions Diet: Diabetic Diet Activity: As Tolerated Other/Special Instructions: Patient will be transferred to [facility] for further subspecialty care and evaluation. - Discharge Plan *PRESCRIPTION DRUG MONITORING PROGRAM REVIEWED*: No *COPY OF PRESCRIPTION DRUG MONITORING REPORT IN PATIENT CLARISSA: No Home Medications: Home Meds Ascorbate Calcium [Vitamin C] 500 mg PO DAILY 04/05/20 [History] Ibuprofen 400 mg PO ASDIRECTED PRN 04/05/20 [History] Insulin Lispro [Humalog] 0 unit SUBCUT QIDACANDBED pen 04/05/20 [Rx] Meropenem [Merrem] 1 gm IV Q8H sdv 04/05/20 [Rx] Multivitamin [Multi-Vitamin Daily] 1 each PO DAILY 04/05/20 [History] Naproxen Sodium [Aleve] 220 mg PO ASDIRECTED PRN 04/05/20 [History] Vancomycin 1 gm IV Q24H sdv 04/05/20 [Rx] Vitamin B Complex 1 each PO DAILY 04/05/20 [History] metFORMIN [Glucophage] 500 mg PO BIDMEALS tablet 04/05/20 [Rx] Referrals: PCP,None [Primary Care Provider] - - Discharge Summary/Plan Comment DC Time >30 min.: Yes (60 minutes of time was spent preparing discharge including counseling patie) - Patient Data Vitals - Most Recent: Last Vital Signs Temp 97.7 F 04/05/20 11:02 Pulse 90 04/05/20 15:15 Resp 16 04/05/20 11:35 BP 114/47 L 04/05/20 15:15 Pulse Ox 96 04/05/20 15:15 Weight - Most Recent: 156 lb 11.979 oz Lab Results - Last 24 hrs: Laboratory Results - last 24 hr 04/05/20 04/05/20 04/05/20 Range/Units 11:45 11:45 11:45 WBC 12.8 H (4.5-11.0) K/uL RBC 4.43 (3.30-5.50) M/uL Hgb 12.8 (12.0-15.0) g/dL Hct 38.0 (36.0-48.0) % MCV 86 (80-98) fL MCH 29 (27-31) pg MCHC 34 (32-36) % Plt Count 149 L (150-400) K/uL D-Dimer, Quantitative (0.0-400.0) ng/mL Sodium 131 L (140-148) mmol/L Potassium 3.8 (3.6-5.2) mmol/L Chloride 94 L (100-108) mmol/L Carbon Dioxide 26 (21-32) mmol/L Anion Gap 14.8 H (5.0-14.0) mmol/L BUN 24 H (7-18) mg/dL Creatinine 1.0 (0.6-1.0) mg/dL Est Cr Clr Drug Dosing 40.81 mL/min Estimated GFR (MDRD) 55 L (>60) Glucose 498 H* (74-106) mg/dL Hemoglobin A1c (4.5-6.2) % Lactic Acid (0.4-2.0) mmol/L Calcium 8.9 (8.5-10.1) mg/dL Total Bilirubin 1.7 H (0.2-1.0) mg/dL AST 56 H (15-37) U/L ALT 104 H (12-78) U/L Alkaline Phosphatase 266 H (46-116) U/L Lactate Dehydrogenase 188 (82-234) U/L C-Reactive Protein 20.08 H (0.0-0.3) mg/dL Total Protein 5.8 L (6.4-8.2) g/dL Albumin 1.7 L (3.4-5.0) g/dL Globulin 4.1 H (2.3-3.5) g/dL Albumin/Globulin Ratio 0.4 L (1.2-2.2) Urine Color (YELLOW) Urine Appearance (CLEAR) Urine pH (5.0-8.0) Ur Specific [place] (1.008-1.030) Urine Protein (NEGATIVE) mg/dL Urine Glucose (UA) (NEGATIVE) mg/dL Urine Ketones (NEGATIVE) mg/dL Urine Occult Blood (NEGATIVE) Urine Nitrite (NEGATIVE) Urine Bilirubin (NEGATIVE) Urine Urobilinogen (0.2-1.0) EU/dL Ur Leukocyte Esterase (NEGATIVE) Urine RBC (0-5) Urine WBC (0-5) Ur Epithelial Cells Amorphous Sediment Urine Bacteria Urine Mucus SARS-CoV-2 RNA (WES) (NEGATIVE) 04/05/20 04/05/20 04/05/20 Range/Units 11:45 12:16 12:27 WBC (4.5-11.0) K/uL RBC (3.30-5.50) M/uL Hgb (12.0-15.0) g/dL Hct (36.0-48.0) % MCV (80-98) fL MCH (27-31) pg MCHC (32-36) % Plt Count (150-400) K/uL D-Dimer, Quantitative 2500 H (0.0-400.0) ng/mL Sodium (140-148) mmol/L Potassium (3.6-5.2) mmol/L Chloride (100-108) mmol/L Carbon Dioxide (21-32) mmol/L Anion Gap (5.0-14.0) mmol/L BUN (7-18) mg/dL Creatinine (0.6-1.0) mg/dL Est Cr Clr Drug Dosing mL/min Estimated GFR (MDRD) (>60) Glucose (74-106) mg/dL Hemoglobin A1c (4.5-6.2) % Lactic Acid 2.2 H (0.4-2.0) mmol/L Calcium (8.5-10.1) mg/dL Total Bilirubin (0.2-1.0) mg/dL AST (15-37) U/L ALT (12-78) U/L Alkaline Phosphatase (46-116) U/L Lactate Dehydrogenase (82-234) U/L C-Reactive Protein (0.0-0.3) mg/dL Total Protein (6.4-8.2) g/dL Albumin (3.4-5.0) g/dL Globulin (2.3-3.5) g/dL Albumin/Globulin Ratio (1.2-2.2) Urine Color Yellow (YELLOW) Urine Appearance Slightly cloudy A (CLEAR) Urine pH 6.0 (5.0-8.0) Ur Specific [place] 1.010 (1.008-1.030) Urine Protein Negative (NEGATIVE) mg/dL Urine Glucose (UA) 500 H (NEGATIVE) mg/dL Urine Ketones 15 H (NEGATIVE) mg/dL Urine Occult Blood Small H (NEGATIVE) Urine Nitrite Positive H (NEGATIVE) Urine Bilirubin Negative (NEGATIVE) Urine Urobilinogen 1.0 (0.2-1.0) EU/dL Ur Leukocyte Esterase Negative (NEGATIVE) Urine RBC 5-10 H (0-5) Urine WBC 5-10 H (0-5) Ur Epithelial Cells Moderate Amorphous Sediment Not seen Urine Bacteria Moderate Urine Mucus Not seen SARS-CoV-2 RNA (WES) (NEGATIVE) 04/05/20 04/05/20 Range/Units 13:40 14:00 WBC (4.5-11.0) K/uL RBC (3.30-5.50) M/uL Hgb (12.0-15.0) g/dL Hct (36.0-48.0) % MCV (80-98) fL MCH (27-31) pg MCHC (32-36) % Plt Count (150-400) K/uL D-Dimer, Quantitative (0.0-400.0) ng/mL Sodium (140-148) mmol/L Potassium (3.6-5.2) mmol/L Chloride (100-108) mmol/L Carbon Dioxide (21-32) mmol/L Anion Gap (5.0-14.0) mmol/L BUN (7-18) mg/dL Creatinine (0.6-1.0) mg/dL Est Cr Clr Drug Dosing mL/min Estimated GFR (MDRD) (>60) Glucose (74-106) mg/dL Hemoglobin A1c 12.7 H (4.5-6.2) % Lactic Acid (0.4-2.0) mmol/L Calcium (8.5-10.1) mg/dL Total Bilirubin (0.2-1.0) mg/dL AST (15-37) U/L ALT (12-78) U/L Alkaline Phosphatase (46-116) U/L Lactate Dehydrogenase (82-234) U/L C-Reactive Protein (0.0-0.3) mg/dL Total Protein (6.4-8.2) g/dL Albumin (3.4-5.0) g/dL Globulin (2.3-3.5) g/dL Albumin/Globulin Ratio (1.2-2.2) Urine Color (YELLOW) Urine Appearance (CLEAR) Urine pH (5.0-8.0) Ur Specific [place] (1.008-1.030) Urine Protein (NEGATIVE) mg/dL Urine Glucose (UA) (NEGATIVE) mg/dL Urine Ketones (NEGATIVE) mg/dL Urine Occult Blood (NEGATIVE) Urine Nitrite (NEGATIVE) Urine Bilirubin (NEGATIVE) Urine Urobilinogen (0.2-1.0) EU/dL Ur Leukocyte Esterase (NEGATIVE) Urine RBC (0-5) Urine WBC (0-5) Ur Epithelial Cells Amorphous Sediment Urine Bacteria Urine Mucus SARS-CoV-2 RNA (WES) Negative (NEGATIVE) Med Orders - Current: Current Medications Acetaminophen (Tylenol) 650 mg PO Q4H PRN PRN Reason: Pain (Mild 1-3)/fever Dextrose (Glutose 15) 15 gm PO ONETIME PRN PRN Reason: Hypoglycemia Dextrose/Water (Dextrose 50% In Water) 50 ml IV ONETIME PRN PRN Reason: Hypoglycemia Enoxaparin Sodium (Lovenox) 40 mg SUBCUT QPM [facility] Last Admin: 04/05/20 17:01 Dose: 40 mg Documented by: Sodium Chloride (Normal Saline) 1,000 mls @ 125 mls/hr IV ASDIRECTED [facility] Last Admin: 04/05/20 16:49 Dose: 125 mls/hr Documented by: Meropenem 1 gm/ Sodium (Chloride) 100 mls @ 200 mls/hr IV Q8H [facility] Last Admin: 04/05/20 18:12 Dose: 200 mls/hr Documented by: Vancomycin HCl 1 gm/ Sodium (Chloride) 250 mls @ 166.667 mls/hr IV Q24H [facility] Insulin Human Lispro (Humalog) 0 unit SUBCUT QIDACANDBED [facility]; Protocol Last Admin: 04/05/20 16:59 Dose: 3 units Documented by: Metformin HCl (Glucophage) 500 mg PO BIDMEALS [facility] Last Admin: 04/05/20 17:00 Dose: 500 mg Documented by: Pharmacy To Dose (Vancomycin) 0 each IV DAILY [facility] Ondansetron HCl (Zofran) 4 mg IV Q4H PRN PRN Reason: Nausea/Vomiting Oxycodone HCl (Oxycodone) 5 mg PO Q4H PRN PRN Reason: Pain (moderate 4-6) Last Admin: 04/05/20 16:31 Dose: 5 mg Documented by: Polyethylene Glycol (Miralax) 17 gm PO DAILY PRN PRN Reason: Constipation Sodium Chloride (Saline Flush) 10 ml FLUSH ASDIRECTED PRN PRN Reason: Keep Vein Open Discontinued Medications Hydromorphone HCl (Dilaudid) 0.25 mg IVPUSH ONETIME ONE Stop: 04/05/20 13:24 Last Admin: 04/05/20 13:32 Dose: 0.25 mg Documented by: Hydromorphone HCl (Dilaudid) 0.25 mg IVPUSH ONETIME ONE Stop: 04/05/20 15:03 Last Admin: 04/05/20 15:37 Dose: 0.25 mg Documented by: Potassium Chloride/Sodium Chloride (Normal Saline With 20 Meq Kcl) 1,000 mls @ 500 mls/hr IV ASDIRECTED [facility] Last Admin: 04/05/20 12:39 Dose: 500 mls/hr Documented by: Ceftriaxone Sodium 1 gm/ (Sodium Chloride) 50 mls @ 100 mls/hr IV ONETIME ONE Stop: 04/05/20 13:35 Last Admin: 04/05/20 13:20 Dose: 100 mls/hr Documented by: Sodium Chloride (Normal Saline) 100 mls @ 3 mls/sec IV ASDIRECTED [facility] Stop: 04/05/20 15:46 Last Admin: 04/05/20 16:15 Dose: 3 mls/sec Documented by: Ceftriaxone Sodium 1 gm/ (Sodium Chloride) 50 mls @ 100 mls/hr IV Q24H [facility] Insulin Human Regular (Humulin R) 12 unit SUBCUT ONETIME ONE Stop: 04/05/20 12:30 Last Admin: 04/05/20 12:38 Dose: 12 units Documented by: Iopamidol (Isovue-370 (76%)) 100 ml IV . DIRECTED [facility] Stop: 04/05/20 15:46 Last Admin: 04/05/20 16:15 Dose: 100 ml Documented by: Ketorolac Tromethamine (Toradol) 30 mg IVPUSH ONETIME ONE Stop: 04/05/20 11:33 Last Admin: 04/05/20 11:48 Dose: 30 mg Documented by: Sodium Chloride (Saline Flush) 10 ml FLUSH ASDIRECTED PRN PRN Reason: Keep Vein Open Last Admin: 04/05/20 11:47 Dose: 10 ml Documented by: Sodium Chloride (Saline Flush) 10 ml FLUSH ONETIME ONE Stop: 04/05/20 15:46 Last Admin: 04/05/20 16:15 Dose: 10 ml Documented by: Vancomycin HCl (Vancomycin) 1 gm IV .PHARMACY TO DOSE PADDY - Exam Quality Assessment: Reports: DVT Prophylaxis General: Reports: Alert, Oriented, Cooperative, Moderate Distress Lungs: Reports: Clear to Auscultation, Normal Respiratory Effort Cardiovascular: Reports: Regular Rate, Regular Rhythm GI/Abdominal Exam: Soft, Non-Tender, No Organomegaly, No Distention Back Exam: Reports: CVA Tenderness (L) Extremities: Non-Tender, No Pedal Edema Neurological: Reports: No New Focal Deficit
[2020-04-06] MEDS ORDERED: cefTRIAXone 1 GM in Sodium Chloride 0.9% 50 ML IV SCH (12:00)
[2020-04-07 10:10] LABS: LYME IGG/IGM AB <0.91 ISR (0.00-0.90)
[2020-04-07 13:10] LABS: HGE IGG TITER Negative (Neg:<1:64); HGE IGM TITER Negative (Neg:<1:20)
== END 2020-04-05 18:30 | DRG 637 ==
LOC: JP.ED 10:38 → JP.ICU 15:07
PROVIDERS: ADMIT Hospitalist; ATTEND Hospitalist
DX: M25.551 Pain in right hip (principal); R73.9 Hyperglycemia, unspecified; Z98.890 Other specified postprocedural states; E11.65 Type 2 diabetes mellitus with hyperglycemia; N15.1 Renal and perinephric abscess; E86.0 Dehydration; G43.909 Migraine, unspecified, not intractable, without status migrainosus; R79.1 Abnormal coagulation profile; R74.8 Abnormal levels of other serum enzymes; Z88.0 Allergy status to penicillin; Z88.2 Allergy status to sulfonamides; Z79.899 Other long term (current) drug therapy; Z90.89 Acquired absence of other organs; Z90.49 Acquired absence of other specified parts of digestive tract; M54.31 Sciatica, right side; Z20.828 Contact with and (suspected) exposure to other viral communicable diseases
CPT/HCPCS: 36415; 71046 ×2; 71275; 72170 ×2; 74177; 80053; 81001; 83036; 83605; 83615; 85027; 85379; 86140; 86666 ×2; 87040 ×2; 87086; J0696; J1170; J1815; J1885; J3480; J7050; U0002; 82962; 86618; 87077; 87088; 87186; 96365; 96366; 96368; 96375; 96376; 99285-25; A9270-GY; J1650; J2185; J3370; J7030; Q9967